=== PATIENT | male | born 1985 | race Two or more races ===

== ENCOUNTER 2016-07-09 15:19 | Emergency (ER) ==
[2016-07-09 15:24] VITALS: TEMP 97.8; BMI 31.0
[2016-07-09] MEDS ORDERED: IMITREX SUBCUT STA (15:30)
--- NOTE | 2016-07-09 15:39 | ED.PDOC ---
General ED Provider: Dr. ENID LUGO JR Chief Complaint: Headache Stated Complaint: has been having problems with migraines with nosebleeds for a year and a half, and coughing up blood for 2 months. has been taking large amounts of motrin for the pain. [ End ]97.8 88 20 96% 161/96 10 dep anx migr tobacco. was on imitrex zoloft and trazodone in [place] headaches now daily, had 4 white spots in frontal lobes in "we don't know what they are but if it was us we wouldn't worry about them" Time Seen by Physician: 15:38 Mode of Arrival: Walk-In Information Source: Patient Exam Limitations: No limitations Nursing and Triage Documentation Reviewed and Agree: No Review of Systems - Review Of Systems Constitutional: Reports: No symptoms Eyes: Reports: No symptoms Ears, Nose, Mouth, Throat: Reports: Epistaxis Respiratory: Reports: Cough Cardiac: Reports: No symptoms GI: Reports: No symptoms : Reports: No symptoms Musculoskeletal: Reports: No symptoms Skin: Reports: No symptoms Neurological: Reports: Headache Endocrine: Reports: No symptoms Hematologic/Lymphatic: Reports: No symptoms All Other Systems: Other Past Medical History - Past Medical History Previously Healthy: Yes Endocrine: Reports: None Cardiovascular: Reports: None, Hypertension (note current blood pressure) Respiratory: Reports: None Hematological: Reports: None Gastrointestinal: Reports: None Genitourinary: Reports: None Neuro/Psych: Reports: None Musculoskeletal: Reports: None Cancer: Reports: None Other Pertinent Past Medical History: left nose plugged right nose bleeds with headaches - Surgical History General Surgical History: Reports: None - Family History Family History: Reports: Other (migraines in mother) - Social History Smoking Status: Current every day smoker, Heavy tobacco smoker Smoking Cessation Counseling Time: > 3 min - 10 min Hx Substance Use: No Alcohol Screening: None 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 Physical Exam - Physical Exam Appearance: Well-appearing Pain Distress: Mild Eyes: SANNA, EOMI, Conjunctiva clear ENT: Ears normal, Nose normal, Oropharynx normal Neck: Supple Respiratory: Airway patent, Breath sounds clear, Breath sounds equal, Respirations nonlabored Cardiovascular: RRR, Pulses normal, No rub, No murmur GI/: Soft, Nontender, No masses, Bowel sounds normal, No Organomegaly Musculoskeletal: Normal strength, ROM intact, No edema, No calf tenderness Skin: Warm, Dry, Normal color Neurological: Sensation intact, Motor intact, Reflexes intact, Cranial nerves intact, Alert, Oriented Psychiatric: Affect appropriate, Mood appropriate Re-Evaluation - Re-Evaluation Time of Re-Evaluation: 17:16 Status: Improved Critical Care Note - Critical Care Note Total Time (mins): 0 Course - Course Hematology/Chemistry: 07/09/16 15:38 Orders, Labs, Meds: Lab Review 07/09/16 15:38 WBC 15.60 H RBC 5.45 Hgb 16.8 Hct 48.8 MCV 89.5 MCH 30.8 MCHC 34.4 RDW Coeff of Faisal 12.9 Plt Count 276 Immature Gran % (Auto) 0.3 Neut % (Auto) 67.4 Lymph % (Auto) 22.8 Pender % (Auto) 6.8 Eos % (Auto) 2.2 Baso % (Auto) 0.5 Immature Gran # (Auto) 0.1 Neut # 10.5 H Lymph # 3.6 H Pender # 1.1 Eos # 0.3 Baso # 0.1 PT 10.7 INR 1.04 Orders Category Date Time Status CBC W/ AUTO DIFF Stat LAB 07/09/16 15:38 Completed PT WITH INR Stat LAB 07/09/16 15:38 Completed Sumatriptan Succinate [Imitrex] MEDS 07/09/16 15:30 Discontinued 6 mg SUBCUT ONCE STA CHEST, 2 VIEWS PA & LAT Stat RADS 07/09/16 15:[address] HEAD W/O CONTRAST Stat RADS 07/09/16 15:31 Completed Medications Discontinued Medications Generic Name Dose Route Start Last Admin Trade Name Freq PRN Reason Stop Dose Admin Sumatriptan Succinate 6 mg 07/09/16 15:30 07/09/16 15:38 Imitrex SUBCUT 07/09/16 15:31 6 mg ONCE STA Administration Vital Signs: Temp Pulse Resp BP Pulse Ox 07/09/16 17:31 150/100 H 07/09/16 15:19 97.8 F 88 20 161/96 H 96 Departure - Departure Time of Disposition: 17:16 Disposition: HOME SELF-CARE Discharge Problem: Headache, Hypertension Instructions: Migraine Headache (ED), Chronic Hypertension (ED) Condition: Good Pt referred to PMD for follow-up: Yes Additional Instructions: follow up with PMD discuss high blood pressure nose bleeds and hemoptysis discuss migraine prophylaxis and treatment may follow with [facility] Imitrex for headaches Initial dose: 50 mg once -If some response to first dose occurs, a second dose may be administered at least 2 hours after first dose if needed Maximum dose: 200 mg per 24 hours Norvasc twice a day goal is blood pressure of 130/80 take blood pressure twice a day may increase to Norvasc to two twice a day if not below 140/90 Prescriptions: Amlodipine Besylate [Norvasc] 5 mg PO BID #30 tablet Sumatriptan Succinate [Imitrex] 50 mg PO Q1-2H PRN #14 tablet PRN Reason: headache Allergies/Adverse Reactions: Allergies banana Adverse Reaction (Verified 07/09/16 15:25) dextromethorphan [From Dimetapp Cold-Congestion] Adverse Reaction (Verified 03/27 15:25) diphenhydramine [From Dimetapp Cold-Congestion] Adverse Reaction (Verified 07/09 15:25) guaifenesin [From Dimetapp Cold-Congestion] Adverse Reaction (Verified 07/09/16 15:25) phenylephrine [From Dimetapp Cold-Congestion] Adverse Reaction (Verified 15:25) pseudoephedrine [From Dimetapp Cold-Congestion] Adverse Reaction (Verified 07/09 15:25) Home Medications: Ambulatory Orders Amlodipine Besylate [Norvasc] 5 mg PO BID #30 tablet 07/09/16 Sumatriptan Succinate [Imitrex] 50 mg PO Q1-2H PRN #14 tablet 07/09/16
[2016-07-09 15:42] LABS: BASOPHILS # (AUTO) 0.1 K/uL (0-0.2); BASOPHILS % (AUTO) 0.5 % (0.0-3.0); EOSINOPHILS # (AUTO) 0.3 K/ul (0.0-0.7); EOSINOPHILS % (AUTO) 2.2 % (0.0-7.0); HEMATOCRIT 48.8 % (42.0-52.0); HEMOGLOBIN 16.8 g/dl (14.0-18.0); IMMATURE GRANULOCYTE % (AUTO) 0.3 % (0.0-5.0); LYMPHOCYTES # (AUTO) 3.6 K/uL (0.60-3.4); LYMPHOCYTES % (AUTO) 22.8 (10.0-50.0); MEAN CORPUSCULAR HEMOGLOBIN 30.8 pg (27.0-31.0); MEAN CORPUSCULAR HGB CONC 34.4 (31.8-35.4); MEAN CORPUSCULAR VOLUME 89.5 fl (80.0-94.0); MONOCYTES # (AUTO) 1.1 K/uL (0.4-2.0); MONOCYTES % (AUTO) 6.8 (0-10); NEUTROPHILS # (AUTO) 10.5 K/ul (2.0-6.9); NEUTROPHILS % (AUTO) 67.4; PLATELET COUNT 276 10^3/uL (140-440); RED BLOOD COUNT 5.45 10^6/ul (4.70-6.10)
[2016-07-09 15:54] LABS: PROTHROMBIN TIME 10.7 SEC (9.3-11.0)
--- NOTE | 2016-07-09 16:12 | DI ---
EXAM: CHEST FRONTAL AND LATERAL VIEWS HISTORY: Hemoptysis. COMPARISON: None FINDINGS: Heart size and mediastinal contour within normal limits. No acute infiltrates. Birdie l vascularity with no pleural fluid or pneumothorax. The bony thorax has no acute finding. IMPRESSION: Grossly unremarkable radiographs. If concern is persistent, consider correlation with f ollow-up imaging given history.
--- NOTE | 2016-07-09 16:41 | CT ---
EXAM: CT BRAIN HISTORY: Headache TECHNIQUE: CT brain without intravenous contrast. 5-mm axial sections with Reformations. COMPARISON: None FINDINGS: Brain is unremarkable without distinct evidence of hemorrhage or large vessel distribution recent ischemic infarction. There is no suggestion of acute hydrocephalus or subdural fluid collection. N o mass or mass effect. Cranium is within normal limits. Mastoid air cells are aerated. The visualized paranasal sinuses are clear. IMPRESSION: No acute intracranial process.
[2016-07-09 17:31] VITALS: BP 150/100
== END 2016-07-09 17:35 | disposition home or self-care (01) ==
LOC: ED 15:19
DX: G43.909 Migraine, unspecified, not intractable, without status migrainosus (principal); I10 Essential (primary) hypertension; R04.2 Hemoptysis; R04.0 Epistaxis; F17.210 Nicotine dependence, cigarettes, uncomplicated
CPT/HCPCS: 36415; 85025; 85610; 96372; 99283

== ENCOUNTER 2016-07-17 10:32 | Emergency (ER) ==
[2016-07-17 10:40] VITALS: BP 154/101; TEMP 100; BMI 31.7
[2016-07-17] MEDS ORDERED: SODIUM CHLORIDE 1,000 ML IV STA (11:02)
[2016-07-17] MEDS ORDERED: IMITREX SUBCUT STA (11:02)
[2016-07-17] MEDS ORDERED: ZOFRAN 4 MG/2 ML IVP STA (11:02)
--- NOTE | 2016-07-17 11:03 | ED.PDOC ---
General ED Provider: Dr. ENID LUGO JR Chief Complaint: Nausea/Vomiting Stated Complaint: felt nauseated when he woke up, states has vomited 7 times since then. has been unable to sleep since saturday when he was put on norvasc. also has bad migraine, unable to pay for imitrex. 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 depr anx migr migraine vomiting. Stated Complaint: has been having problems with migraines with nosebleeds for a year and a half, and coughing up blood for 2 months. has been taking large amounts of motrin for the pain. [ End ]97.8 88 20 96% 161/96 06/18 dep anx migr tobacco. was on imitrex zoloft and trazodone in [place] headaches now daily, had 4 white spots in frontal lobes in "we don't know what they are but if it was us we wouldn't worry about them". Time Seen by Physician: 15:38 Time Seen by Physician: 11:02 Mode of Arrival: Walk-In Information Source: Patient Exam Limitations: No limitations Nursing and Triage Documentation Reviewed and Agree: No Review of Systems - Review Of Systems Constitutional: Reports: Malaise Eyes: Reports: No symptoms Ears, Nose, Mouth, Throat: Reports: No symptoms Respiratory: Reports: No symptoms Cardiac: Reports: No symptoms GI: Reports: No symptoms : Reports: No symptoms Musculoskeletal: Reports: No symptoms Skin: Reports: No symptoms Neurological: Reports: Emotional problems, Headache, Other Endocrine: Reports: No symptoms Hematologic/Lymphatic: Reports: No symptoms All Other Systems: Other Past Medical History - Past Medical History Previously Healthy: Yes Endocrine: Reports: None Cardiovascular: Reports: None, Hypertension (note current blood pressure) Respiratory: Reports: None Hematological: Reports: None Gastrointestinal: Reports: None Genitourinary: Reports: None Neuro/Psych: Reports: None Musculoskeletal: Reports: None Cancer: Reports: None Other Pertinent Past Medical History: left nose plugged right nose bleeds with headaches - Surgical History General Surgical History: Reports: None - Family History Family History: Reports: Other (migraines in mother) - Social History Smoking Status: Current every day smoker, Heavy tobacco smoker Hx Substance Use: No Alcohol Screening: None Physical Exam - Physical Exam Appearance: Ill-appearing Ill-appearing: Mild Pain Distress: Mild Eyes: SANNA, EOMI, Conjunctiva clear ENT: Ears normal, Nose normal, Oropharynx normal Neck: Supple Respiratory: Airway patent, Breath sounds clear, Breath sounds equal, Respirations nonlabored Cardiovascular: RRR, Pulses normal, No rub, No murmur GI/: Soft, Nontender, No masses, Bowel sounds normal, No Organomegaly Musculoskeletal: Normal strength, ROM intact, No edema, No calf tenderness Skin: Warm, Dry, Normal color Neurological: Sensation intact, Motor intact, Reflexes intact, Cranial nerves intact, Alert, Oriented Psychiatric: Affect appropriate, Mood appropriate Critical Care Note - Critical Care Note Total Time (mins): 0 Course - Course Orders, Labs, Meds: Orders Category Date Time Status ED IV/MEDIPORT/POWERPORT .ONCE EMERGENCY 07/17/16 11:03 Active 0.9 % Sodium Chloride [Saline Flush] MEDS 07/17/16 11:02 Active 1 syr IVF PRN PRN Ondansetron HCl/Pf [Zofran 4 mg/2 ml] MEDS 07/17/16 11:02 Discontinued 4 mg IVP ONCE STA Sodium Chloride 0.9% [Sodium Chloride] 1,000 ml MEDS 07/17/16 11:02 Discontinued IV BOLUS Sumatriptan Succinate [Imitrex] MEDS 07/17/16 11:02 Discontinued 6 mg SUBCUT ONCE STA Medications Generic Name Dose Route Start Last Admin Trade Name Freq PRN Reason Stop Dose Admin Sodium Chloride 1 syr 07/17/16 11:02 07/17/16 11:16 Saline Flush IVF 1 syr PRN PRN Administration To flush IV Discontinued Medications Generic Name Dose Route Start Last Admin Trade Name Freq PRN Reason Stop Dose Admin Sodium Chloride 1,000 mls @ 1,000 mls/hr 07/17/16 11:02 07/17/16 11:16 Sodium Chloride IV 07/17/16 12:01 1,000 mls/hr BOLUS STA Administration Ondansetron HCl 4 mg 07/17/16 11:02 07/17/16 11:16 Zofran 4 Mg/2 Ml IVP 07/17/16 11:03 4 mg ONCE STA Administration Sumatriptan Succinate 6 mg 07/17/16 11:02 07/17/16 11:16 Imitrex SUBCUT 07/17/16 11:03 6 mg ONCE STA Administration Vital Signs: Temp Pulse Resp BP Pulse Ox 07/17/16 10:33 100.0 F H 98 H 20 154/101 H 94 L Departure - Departure Time of Disposition: 12:20 Disposition: HOME SELF-CARE Discharge Problem: Headache Qualifiers: Headache type: unspecified Headache chronicity pattern: acute headache Intractability: intractable Qualifier Code: (R51) Headache Hypertension Qualifiers: Hypertension type: essential hypertension Qualifier Code: (I10) Essential ( primary) hypertension Instructions: Acute Headache (ED), Hypertension (ED) Condition: Fair Pt referred to PMD for follow-up: Yes Additional Instructions: follow up with PMD may follow up with [facility] change blood pressure medication OK to skip a day and evaluate if sleep is better may try Fioricet for headache, not together with Imitrex Prescriptions: Butalb/Acetaminophen/Caffeine [Fioricet] 1 each PO QID PRN #10 tablet PRN Reason: headache Enalapril Maleate [Vasotec] 10 mg PO DAILY #30 tablet Allergies/Adverse Reactions: Allergies banana Adverse Reaction (Verified 07/17/16 10:37) dextromethorphan [From Dimetapp Cold-Congestion] Adverse Reaction (Verified 11/25 10:37) diphenhydramine [From Dimetapp Cold-Congestion] Adverse Reaction (Verified 07/17 10:37) guaifenesin [From Dimetapp Cold-Congestion] Adverse Reaction (Verified 07/17/16 10:37) phenylephrine [From Dimetapp Cold-Congestion] Adverse Reaction (Verified 10:37) pseudoephedrine [From Dimetapp Cold-Congestion] Adverse Reaction (Verified 07/17 10:37) Home Medications: Ambulatory Orders Amlodipine Besylate [Norvasc] 5 mg PO BID #30 tablet 07/09/16 Sumatriptan Succinate [Imitrex] 50 mg PO Q1-2H PRN #14 tablet 07/09/16 Butalb/Acetaminophen/Caffeine [Fioricet] 1 each PO QID PRN #10 tablet 07/17/16 Enalapril Maleate [Vasotec] 10 mg PO DAILY #30 tablet 07/17/16
== END 2016-07-17 12:40 | disposition home or self-care (01) ==
LOC: ED 10:32
DX: R51 Headache (principal); R11.2 Nausea with vomiting, unspecified; I10 Essential (primary) hypertension; F17.210 Nicotine dependence, cigarettes, uncomplicated; Z79.899 Other long term (current) drug therapy
CPT/HCPCS: 96361; 96372; 96374; 99283